=== PATIENT | female | born 1970 | race Caucasian/White ===

== ENCOUNTER 2016-12-05 17:07 | Emergency (ER) | payer OTHER ==
[2016-12-05] MEDS ORDERED: Acetaminophen 500 MG TAB ONE (17:40)
[2016-12-05] MEDS ORDERED: Ibuprofen 800 MG TAB ONE (17:40)
--- NOTE | 2016-12-05 18:06 | RAD ---
RIGHT FOREARM TWO VIEW 12/05/16 HISTORY: Trauma. COMPARISON: None. FINDINGS: No acute fracture of the forearm. Soft tissues are unremarkable. IMPRESSION: Unremarkable exam of the forearm. POS: [id number]
== END 2016-12-05 18:10 | disposition home or self-care (01) ==
LOC: MADERS 17:07
DX: S50.11XA Contusion of right forearm, initial encounter (principal); F17.210 Nicotine dependence, cigarettes, uncomplicated; Z79.899 Other long term (current) drug therapy; X58.XXXA Exposure to other specified factors, initial encounter

== ENCOUNTER 2016-12-16 10:05 | Emergency (ER) | payer OTHER ==
[2016-12-16] MEDS ORDERED: Ketorolac Tromethamine 60 MG/2 ML VIAL ONE (10:42)
== END 2016-12-16 11:13 | disposition home or self-care (01) ==
LOC: MADERS 10:05
DX: M54.41 Lumbago with sciatica, right side (principal); K74.60 Unspecified cirrhosis of liver; F17.210 Nicotine dependence, cigarettes, uncomplicated; Z86.19 Personal history of other infectious and parasitic diseases; Z79.891 Long term (current) use of opiate analgesic; Z79.899 Other long term (current) drug therapy
CPT/HCPCS: 96372; J1040; J1885

== ENCOUNTER 2018-05-22 16:57 | Emergency (ER) | payer OTHER ==
[2018-05-22] MEDS ORDERED: Loperamide HCl 2 MG CAP ONE (17:38)
[2018-05-22] MEDS ORDERED: Ondansetron HCl/PF 4 MG/2 ML Vial ONE (17:38)
[2018-05-22] MEDS ORDERED: Ketorolac Tromethamine 30 MG/ML VIAL ONE (17:38)
[2018-05-22 17:42] LABS: #Basophils 0.1 thou/uL (0.0-0.2); #Eosinphils 0.1 thou/uL (0.0-0.7); #Lymphocytes 2.6 thou/uL (1.20-3.40); #Monocytes 0.7 thou/uL (0.11-0.59); %Basophils 0.9 % (0.0-1.0); %Lymphocytes 30.9 % (21.0-51.0); %Monocytes 8.3 % (0.0-10.0); Mean Corpuscular Hemoglobin 32.9 pg (27.0-31.0); Mean Corpuscular Volume 94.2 fL (78.0-98.0); Mean Platelet Volume 7.8 fL (7.4-10.4); Platelet Count 101 thou/uL (130-400); Red Blood Cell (RBC) Count 4.55 mill/uL (4.20-5.40); White Blood Cell (WBC) Count 8.5 thou/uL (4.8-10.8)
[2018-05-22 17:44] LABS: ALT (SGPT) 24 U/L (8-55); AST (SGOT) 23 U/L (5-34); Albumin 4.6 g/dL (3.5-5.0); Alkaline Phosphatase 143 U/L (40-150); Anion Gap 15 mmol/L (10-20); BUN (Urea Nitrogen) 6 mg/dL (7.0-18.7); Bilirubin, Total 0.5 mg/dL (0.2-1.2); Calc. Creatinine Clearance 0 mL/min (70-130); Calcium 10.3 mg/dL (7.8-10.44); Carbon Dioxide 26 mmol/L (22-29); Chloride 107 mmol/L (98-107); Estimated GFR-MDRD Greater than 90; Globulin 3.5 g/dL (2.4-3.5); Glucose 92 mg/dL (70-105); Protein, Total 8.1 g/dL (6.0-8.3); Sodium 144 mmol/L (136-145)
[2018-05-22 17:47] LABS: PLT Morphology Comment Appears Decreased
[2018-05-22] MEDS ORDERED: Lidocaine Viscous Sol 2% 15 ml UD Cup ONE (18:06)
== END 2018-05-22 18:49 | disposition home or self-care (01) ==
LOC: MADERS 16:57
DX: F11.23 Opioid dependence with withdrawal (principal); J45.909 Unspecified asthma, uncomplicated; F17.210 Nicotine dependence, cigarettes, uncomplicated; K74.60 Unspecified cirrhosis of liver; Z79.899 Other long term (current) drug therapy
CPT/HCPCS: 36415; 80053; 83690; 85025; 96361; 96374; 96375; J1885; J2405

== ENCOUNTER 2018-08-10 13:39 | Emergency (ER) | payer OTHER ==
[2018-08-10] MEDS ORDERED: Acetaminophen 500 MG TAB ONE (13:57)
[2018-08-10] MEDS ORDERED: Clindamycin 150 MG CAP ONE (13:57)
== END 2018-08-10 14:12 | disposition home or self-care (01) ==
LOC: MADERS 13:39
DX: K02.9 Dental caries, unspecified (principal); F17.210 Nicotine dependence, cigarettes, uncomplicated; Z79.899 Other long term (current) drug therapy
CPT/HCPCS: 99282

== ENCOUNTER 2018-08-16 08:20 | Emergency (ER) | payer OTHER ==
[2018-08-16] MEDS ORDERED: Ketorolac Tromethamine 60 MG/2 ML VIAL ONE (08:57)
[2018-08-16] MEDS ORDERED: Sodium Chloride 0.9% 1,000 ML ONE (09:16)
[2018-08-16] MEDS ORDERED: Acetaminophen 500 MG TAB ONE (09:38)
[2018-08-16 09:40] LABS: #Basophils 0.1 thou/uL (0.0-0.2); #Lymphocytes 1.7 thou/uL (1.20-3.40); #Monocytes 0.7 thou/uL (0.11-0.59); %Basophils 0.4 % (0.0-1.0); %Eosinophils 0.2 % (0.0-10.0); %Lymphocytes 10.7 % (21.0-51.0); %Monocytes 4.4 % (0.0-10.0); %Neutrophils 84.4 % (42.0-75.0); Hemoglobin 14.8 g/dL (12.0-16.0); Mean Corpuscular HGB CONC 34.9 g/dL (32.0-36.0); Mean Corpuscular Hemoglobin 33.7 pg (27.0-31.0); Mean Corpuscular Volume 96.4 fL (78.0-98.0); Mean Platelet Volume 6.3 fL (7.4-10.4); Platelet Count 184 thou/uL (130-400); RBC Distribution Width 11.2 % (11.5-14.5); Red Blood Cell (RBC) Count 4.41 mill/uL (4.20-5.40); White Blood Cell (WBC) Count 15.4 thou/uL (4.8-10.8)
[2018-08-16 09:57] LABS: ALT (SGPT) 30 U/L (8-55); AST (SGOT) 32 U/L (5-34); Albumin 3.7 g/dL (3.5-5.0); Alkaline Phosphatase 135 U/L (40-150); Anion Gap 16 mmol/L (10-20); BUN (Urea Nitrogen) 5 mg/dL (7.0-18.7); Bilirubin, Total 0.4 mg/dL (0.2-1.2); Calc. Creatinine Clearance 0 mL/min (70-130); Calcium 9.5 mg/dL (7.8-10.44); Carbon Dioxide 26 mmol/L (22-29); Chloride 100 mmol/L (98-107); Estimated GFR-MDRD 84; Glucose 153 mg/dL (70-105); Protein, Total 7.7 g/dL (6.0-8.3); Sodium 139 mmol/L (136-145)
--- NOTE | 2018-08-16 09:59 | RAD ---
TWO VIEW CHEST: INDICATION: Cough. COMPARISON: Reference is made to 05/04/2015 exam. FINDINGS: There are interstitial opacities bilaterally. Nipple shadows overlie the lower chest bilaterally. C ardiac silhouette is normal in size. No effusion or discrete pneumothorax. IMPRESSION: Interstitial prominence of each lung. This could be on the basis of an atypical infectious process v ersus interstitial lung disease. Edema is considered less likely given normal size of cardiac silhou ette. Recommend clinical correlation. Imaging followup is also recommended to confirm resolution. CODE T
[2018-08-16] MEDS ORDERED: Potassium Chloride 20 MEQ TAB ONE (10:11)
[2018-08-16] MEDS ORDERED: Levofloxacin 500 mg/D5W 100 ml Premix Bag ONE (10:11)
[2018-08-16] MEDS ORDERED: Acyclovir 200 mg Capsule ONE (10:15)
[2018-08-16] MEDS ORDERED: Sodium Chloride 0.9% 1,000 ML BAG ONE (18:20)
== END 2018-08-16 11:18 | disposition short-term general hospital (02) ==
LOC: MADERS 08:20
DX: J18.9 Pneumonia, unspecified organism (principal); B02.9 Zoster without complications; J45.909 Unspecified asthma, uncomplicated; F17.210 Nicotine dependence, cigarettes, uncomplicated; Z79.899 Other long term (current) drug therapy
CPT/HCPCS: 71046; 80053; 83605; 85025; 87040; 94760; 96361; 96365; 96372; J1885; J1956; J7050

== ENCOUNTER 2018-10-25 12:12 | Emergency (ER) | payer OTHER | END 2018-10-25 12:35 | disposition home or self-care (01) | LOC: MADERS 12:12 | DX: K04.7 Periapical abscess without sinus (principal); K02.9 Dental caries, unspecified; J45.909 Unspecified asthma, uncomplicated; F17.210 Nicotine dependence, cigarettes, uncomplicated; Z79.51 Long term (current) use of inhaled steroids | CPT/HCPCS: 99282 ==

== ENCOUNTER 2019-06-24 10:14 | Emergency (ER) | payer OTHER | END 2019-06-24 10:45 | disposition home or self-care (01) | LOC: MADERS 10:14 | DX: K02.9 Dental caries, unspecified (principal); J45.909 Unspecified asthma, uncomplicated; F17.210 Nicotine dependence, cigarettes, uncomplicated | CPT/HCPCS: 99406 ==

== ENCOUNTER 2019-10-14 04:06 | Emergency (ER) | payer OTHER | END 2019-10-14 04:28 | disposition left against medical advice (07) | LOC: MADERS 04:06 | DX: Z53.21 Procedure and treatment not carried out due to patient leaving prior to being seen by health care provider (principal) ==

== ENCOUNTER 2020-02-13 11:32 | Emergency (ER) | payer OTHER ==
--- NOTE | 2020-02-13 12:12 | RAD ---
Exam:3 views left foot HISTORY: Foot pain on tailored to days ago. Pain. COMPARISON: None FINDINGS: Lisfranc alignment is maintained. Joint spaces are preserved. Nondisplaced fracture involvi ng the proximal aspect of the distal phalanx of the first digit. There does appear to be intra-articular extension. There is midfoot soft tissue swelling. IMPRESSION: Fracture involving the proximal aspect of the distal phalanx of the first digit.
--- NOTE | 2020-02-13 12:43 | RAD ---
LEFT ANKLE 3 VIEWS: Date: 02/13/2020] HISTORY: Injury, left ankle pain. FINDINGS/IMPRESSION: The ankle mortise is maintained. No acute fracture or dislocation is identified. POS: C
[2020-02-13] MEDS ORDERED: HYDROcodone/Acetaminophen 5/325 mg Tablet ONE (12:53)
== END 2020-02-13 13:11 | disposition home or self-care (01) ==
LOC: MADERS 11:32
DX: S92.425A Nondisplaced fracture of distal phalanx of left great toe, initial encounter for closed fracture (principal); F17.200 Nicotine dependence, unspecified, uncomplicated; M25.572 Pain in left ankle and joints of left foot; L03.116 Cellulitis of left lower limb; W23.0XXA Caught, crushed, jammed, or pinched between moving objects, initial encounter

== ENCOUNTER 2020-02-15 17:56 | Emergency (ER) | payer OTHER ==
--- NOTE | 2020-02-15 18:54 | RAD ---
EXAM: LEFT TIBIA AND FIBULA TWO VIEWS: History: Pain following injury. Difficulty ambulating. FINDINGS: Minimal focal lateral soft tissue swelling is noted at the lower leg. No fracture, dislocation, or ot her acute process. IMPRESSION: Minimal focal distal lower leg soft tissue swelling. No acute osseous process. Stable appearance from yesterday's ankle examination. POS: RRE
[2020-02-15] MEDS ORDERED: Ketorolac Tromethamine 60 MG/2 ML VIAL ONE (18:58)
== END 2020-02-15 19:35 | disposition home or self-care (01) ==
LOC: MADERS 17:56
DX: M79.662 Pain in left lower leg (principal); F17.290 Nicotine dependence, other tobacco product, uncomplicated
CPT/HCPCS: 96372; J1885

== ENCOUNTER 2020-02-18 19:04 | Emergency (ER) | payer MEDICAID, OTHER ==
[2020-02-18] MEDS ORDERED: Piperacillin/Tazobactam 3.375 GM VIAL ONE (20:19)
[2020-02-18] MEDS ORDERED: Sodium Chloride 0.9% 1,000 ML ONE (20:19)
[2020-02-18] MEDS ORDERED: Ketorolac Tromethamine 30 MG/ML VIAL ONE (20:19)
[2020-02-18] MEDS ORDERED: Sodium Chloride 0.9% 100 ML ONE (20:19)
[2020-02-18 20:22] LABS: Bilirubin Negative (Negative); Blood, Urine Trace (Negative); Clarity Clear (Clear); Glucose, Urine (Dipstick) Negative (Negative); Leukocyte Negative (Negative); Nitrite Negative (Negative); Protein, Urine (Dipstick) Negative (Neg-Trace); Urobilinogen 0.2 mg/dL (Less than 2)
[2020-02-18 20:29] LABS: ALT (SGPT) 31 U/L (8-55); AST (SGOT) 37 U/L (5-34); Albumin 4.5 g/dL (3.5-5.0); Alkaline Phosphatase 137 U/L (40-110); Anion Gap 17 mmol/L (10-20); BUN (Urea Nitrogen) 23 mg/dL (9.8-20.1); Bilirubin, Total 0.4 mg/dL (0.2-1.2); Calc. Creatinine Clearance 0 mL/min (70-130); Calcium 10.2 mg/dL (7.8-10.44); Carbon Dioxide 20 mmol/L (22-29); Chloride 107 mmol/L (98-107); Estimated GFR-MDRD 54; Globulin 3.8 g/dL (2.4-3.5); Glucose 96 mg/dL (70-105); Potassium 4.4 mmol/L (3.5-5.1); Protein, Total 8.3 g/dL (6.0-8.3); Sodium 140 mmol/L (136-145)
[2020-02-18 20:30] LABS: Bacteria/HPF None Seen HPF (None Seen); RBC/HPF 0-3 HPF (0-3); Squamous Epithelial 0-3 HPF (0-3); WBC/HPF 0-3 HPF (0-3)
[2020-02-18 20:31] LABS: #Basophils 0.1 thou/uL (0.0-0.2); #Eosinphils 0.1 thou/uL (0.0-0.7); #Monocytes 0.6 thou/uL (0.11-0.59); #Neutrophils 3.4 thou/uL (1.40-6.50); %Basophils 1.1 % (0.0-1.0); %Eosinophils 1.6 % (0.0-10.0); %Lymphocytes 31.6 % (21.0-51.0); %Neutrophils 55.7 % (42.0-75.0); Mean Corpuscular Hemoglobin 32.8 pg (27.0-31.0); Mean Corpuscular Volume 102.3 fL (78.0-98.0); Mean Platelet Volume 9.2 fL (7.4-10.4); Platelet Count 98 thou/uL (130-400); RBC Distribution Width 14.4 % (11.5-14.5); Red Blood Cell (RBC) Count 3.97 mill/uL (4.20-5.40); White Blood Cell (WBC) Count 6.2 thou/uL (4.8-10.8)
== END 2020-02-18 21:20 | disposition short-term general hospital (02) ==
LOC: MADERS 19:04
DX: L03.116 Cellulitis of left lower limb (principal); F17.200 Nicotine dependence, unspecified, uncomplicated
CPT/HCPCS: 80053; 81003; 81015; 83605; 85025; 87040; 87086; 96365; 96375; J1885; J2543; J3370; J3490; J7050; J7070

== ENCOUNTER 2020-05-13 14:03 | Emergency (ER) | payer MEDICAID, OTHER ==
[2020-05-13] MEDS ORDERED: Amoxicillin/Potassium Clav 875 MG TAB ONE (15:19)
== END 2020-05-13 15:15 | disposition home or self-care (01) ==
LOC: MADERS 14:03
DX: K02.9 Dental caries, unspecified (principal); F17.210 Nicotine dependence, cigarettes, uncomplicated
CPT/HCPCS: 64400

== ENCOUNTER 2020-08-13 12:58 | Emergency (ER) | payer OTHER ==
[2020-08-13] MEDS ORDERED: Boostrix 0.5 ML (Tdap) VIAL ONE (13:41)
== END 2020-08-13 13:53 | disposition home or self-care (01) ==
LOC: MADERS 12:58
DX: S40.872A Other superficial bite of left upper arm, initial encounter (principal); J45.909 Unspecified asthma, uncomplicated; F17.210 Nicotine dependence, cigarettes, uncomplicated; W64.XXXA Exposure to other animate mechanical forces, initial encounter
CPT/HCPCS: 90471; 90715

== ENCOUNTER 2020-08-24 11:31 | Emergency (ER) | payer OTHER | END 2020-08-24 12:03 | disposition home or self-care (01) | LOC: MADERS 11:31 | DX: M54.5 Low back pain (principal); F17.210 Nicotine dependence, cigarettes, uncomplicated; J45.909 Unspecified asthma, uncomplicated | CPT/HCPCS: 99281 ==

== ENCOUNTER 2020-09-02 11:26 | Emergency (ER) | payer OTHER | END 2020-09-02 11:58 | disposition left against medical advice (07) | LOC: MADERS 11:26 | DX: R21 Rash and other nonspecific skin eruption (principal); M54.2 Cervicalgia; R22.1 Localized swelling, mass and lump, neck; J45.909 Unspecified asthma, uncomplicated; F17.210 Nicotine dependence, cigarettes, uncomplicated | CPT/HCPCS: 99282 ==

== ENCOUNTER 2020-09-27 11:39 | Emergency (ER) | payer OTHER ==
[2020-09-27] MEDS ORDERED: predniSONE 20 MG TAB ONE (12:06)
== END 2020-09-27 12:09 | disposition home or self-care (01) ==
LOC: MADERS 11:39
DX: L30.9 Dermatitis, unspecified (principal); F17.210 Nicotine dependence, cigarettes, uncomplicated; J45.909 Unspecified asthma, uncomplicated
CPT/HCPCS: 99282; J7512

== ENCOUNTER 2020-10-09 16:48 | Emergency (ER) | payer OTHER ==
[2020-10-09] MEDS ORDERED: Ondansetron ODT 4 MG TAB ONE (18:31)
[2020-10-09] MEDS ORDERED: Ketorolac Tromethamine 30 MG/ML VIAL ONE (18:31)
[2020-10-09 18:35] LABS: #Basophils 0.1 thou/uL (0.0-0.2); #Eosinphils 0.1 thou/uL (0.0-0.7); #Lymphocytes 2.7 thou/uL (1.20-3.40); #Monocytes 0.8 thou/uL (0.11-0.59); #Neutrophils 5.8 thou/uL (1.40-6.50); %Eosinophils 1.5 % (0.0-10.0); %Lymphocytes 27.9 % (21.0-51.0); %Monocytes 8.8 % (0.0-10.0); %Neutrophils 60.7 % (42.0-75.0); Hemoglobin 16.4 g/dL (12.0-16.0); Mean Corpuscular HGB CONC 33.3 g/dL (32.0-36.0); Mean Corpuscular Hemoglobin 32.5 pg (27.0-31.0); Mean Corpuscular Volume 97.9 fL (78.0-98.0); Mean Platelet Volume 7.2 fL (7.4-10.4); Platelet Count 124 thou/uL (130-400); Red Blood Cell (RBC) Count 5.04 mill/uL (4.20-5.40); White Blood Cell (WBC) Count 9.5 thou/uL (4.8-10.8)
--- NOTE | 2020-10-09 18:38 | CT ---
CT BRAIN WITHOUT CONTRAST: HISTORY: Headache COMPARISON: 09/30/2015 FINDINGS: No evidence of acute infarct, hemorrhage, midline shift or abnormal extra-axial fluid collections is seen. The ventricular size is appropriate and the basilar cisterns are patent. The bony calvarium is intact. The visualized paranasal sinuses and mastoid air cells are well aerated. IMPRESSION: No CT evidence of acute intracranial process.
[2020-10-09 18:51] LABS: ALT (SGPT) 50 U/L (8-55); AST (SGOT) 44 U/L (5-34); Albumin 4.7 g/dL (3.5-5.0); Alkaline Phosphatase 111 U/L (40-110); Anion Gap 17 mmol/L (10-20); BUN (Urea Nitrogen) 14 mg/dL (9.8-20.1); Bilirubin, Total 0.7 mg/dL (0.2-1.2); Calc. Creatinine Clearance 0 mL/min (70-130); Calcium 10.6 mg/dL (7.8-10.44); Carbon Dioxide 26 mmol/L (22-29); Chloride 103 mmol/L (98-107); Globulin 3.7 g/dL (2.4-3.5); Glucose 99 mg/dL (70-105); Potassium 4.6 mmol/L (3.5-5.1); Protein, Total 8.4 g/dL (6.0-8.3); Sodium 141 mmol/L (136-145)
== END 2020-10-09 20:00 | disposition home or self-care (01) ==
LOC: MADERS 16:48
DX: G43.909 Migraine, unspecified, not intractable, without status migrainosus (principal); H53.149 Visual discomfort, unspecified; J45.909 Unspecified asthma, uncomplicated; F17.210 Nicotine dependence, cigarettes, uncomplicated
CPT/HCPCS: 36415; 70450; 80053; 85025; 96372; J1885; Q0162

== ENCOUNTER 2020-10-11 12:07 | Emergency (ER) | payer OTHER ==
[~2020-10-11 12:07] MED LIST: Iopamidol 370 76% 125 ML VIAL FS ONE
[2020-10-11] MEDS ORDERED: Ketorolac Tromethamine 60 MG/2 ML VIAL ONE (13:56)
[2020-10-11] MEDS ORDERED: diphenhydrAMINE 50 MG/ML VIAL ONE (13:56)
[2020-10-11] MEDS ORDERED: Metoclopramide HCl 10 MG/2 ML VIAL ONE (13:56)
[2020-10-11] MEDS ORDERED: Ketorolac Tromethamine 30 MG/ML VIAL ONE (13:57)
[2020-10-11] MEDS ORDERED: Sodium Chloride 0.9% 1,000 ML ONE (13:57)
[2020-10-11 14:07] LABS: #Basophils 0.1 thou/uL (0.0-0.2); #Eosinphils 0.1 thou/uL (0.0-0.7); #Monocytes 0.8 thou/uL (0.11-0.59); #Neutrophils 5.3 thou/uL (1.40-6.50); %Lymphocytes 24.6 % (21.0-51.0); %Monocytes 9.1 % (0.0-10.0); %Neutrophils 64.3 % (42.0-75.0); Mean Corpuscular HGB CONC 32.3 g/dL (32.0-36.0); Mean Corpuscular Hemoglobin 32.1 pg (27.0-31.0); Mean Corpuscular Volume 99.3 fL (78.0-98.0); Mean Platelet Volume 8.1 fL (7.4-10.4); Platelet Count 119 thou/uL (130-400); RBC Distribution Width 13.1 % (11.5-14.5); Red Blood Cell (RBC) Count 4.91 mill/uL (4.20-5.40); White Blood Cell (WBC) Count 8.3 thou/uL (4.8-10.8)
[2020-10-11 14:13] LABS: ALT (SGPT) 40 U/L (8-55); AST (SGOT) 31 U/L (5-34); Albumin 4.6 g/dL (3.5-5.0); Alkaline Phosphatase 112 U/L (40-110); Anion Gap 15 mmol/L (10-20); BUN (Urea Nitrogen) 17 mg/dL (9.8-20.1); Bilirubin, Total 0.7 mg/dL (0.2-1.2); Calc. Creatinine Clearance 0 mL/min (70-130); Calcium 10.2 mg/dL (7.8-10.44); Carbon Dioxide 27 mmol/L (22-29); Chloride 104 mmol/L (98-107); Globulin 3.5 g/dL (2.4-3.5); Glucose 91 mg/dL (70-105); Potassium 3.9 mmol/L (3.5-5.1); Protein, Total 8.1 g/dL (6.0-8.3); Sodium 142 mmol/L (136-145)
[2020-10-11 14:19] LABS: Anisocytosis SLIGHT = 6-15 cells (100X) (0-5/hpf); Platelet Morphology Comment Appears Decreased
[2020-10-11] MEDS ORDERED: Meclizine HCl 25 MG TAB ONE (16:32)
[2020-10-11] MEDS ORDERED: Magnesium 2 GM/50 ML BAG (IN WATER) ONE (16:32)
== END 2020-10-11 18:40 | disposition home or self-care (01) ==
LOC: MADERS 12:07
DX: R51.9 Headache, unspecified (principal); R42 Dizziness and giddiness; J45.909 Unspecified asthma, uncomplicated; F17.210 Nicotine dependence, cigarettes, uncomplicated
CPT/HCPCS: 70496; 70498; 80053; 85025; 93005; 96365; 96367; 96375; J1200; J1885; J2765; J3475; J7050; Q9967

== ENCOUNTER 2020-12-10 13:45 | Outpatient (CLI) | payer OTHER | END 2020-12-10 13:46 | disposition home or self-care (01) | LOC: MADLAB 13:45 | PROVIDERS: ATTEND Family Medicine | DX: R82.998 Other abnormal findings in urine (principal) | CPT/HCPCS: 87086 ==

== ENCOUNTER 2021-07-23 11:18 | Emergency (ER) | payer OTHER ==
[2021-07-23] MEDS ORDERED: Ketorolac Tromethamine 60 MG/2 ML VIAL ONE (12:45)
== END 2021-07-23 13:18 | disposition home or self-care (01) ==
LOC: MADERS 11:18
DX: M54.2 Cervicalgia (principal); M54.6 Pain in thoracic spine; M54.50 Low back pain, unspecified; J45.909 Unspecified asthma, uncomplicated; F17.210 Nicotine dependence, cigarettes, uncomplicated; W01.0XXA Fall on same level from slipping, tripping and stumbling without subsequent striking against object, initial encounter
CPT/HCPCS: 72125; 72128; 72131; 96372; J1885

== ENCOUNTER 2021-08-02 13:39 | Emergency (ER) | payer OTHER | END 2021-08-02 15:04 | disposition home or self-care (01) | LOC: MADERS 13:39 | DX: K04.7 Periapical abscess without sinus (principal); Z71.6 Tobacco abuse counseling; K02.9 Dental caries, unspecified; K03.81 Cracked tooth; J45.909 Unspecified asthma, uncomplicated; F17.210 Nicotine dependence, cigarettes, uncomplicated | CPT/HCPCS: 99283 ==

== ENCOUNTER 2021-08-07 15:31 | Emergency (ER) | payer OTHER ==
[2021-08-07 16:14] LABS: #Basophils 0.1 thou/uL (0.0-0.2); #Eosinphils 0.1 thou/uL (0.0-0.7); #Lymphocytes 2.7 thou/uL (1.20-3.40); #Monocytes 1.1 thou/uL (0.11-0.59); #Neutrophils 4.9 thou/uL (1.40-6.50); %Basophils 1.1 % (0.0-1.0); %Eosinophils 0.8 % (0.0-10.0); %Lymphocytes 30.7 % (21.0-51.0); %Monocytes 11.9 % (0.0-10.0); %Neutrophils 55.5 % (42.0-75.0); Hemoglobin 16.3 g/dL (12.0-16.0); Mean Corpuscular HGB CONC 32.6 g/dL (32.0-36.0); Mean Corpuscular Hemoglobin 32.2 pg (27.0-31.0); Mean Corpuscular Volume 98.6 fL (78.0-98.0); Mean Platelet Volume 7.4 fL (7.4-10.4); Platelet Count 128 thou/uL (130-400); RBC Distribution Width 12.5 % (11.5-14.5); Red Blood Cell (RBC) Count 5.07 mill/uL (4.20-5.40); White Blood Cell (WBC) Count 8.8 thou/uL (4.8-10.8)
[2021-08-07] MEDS ORDERED: Ondansetron PF 4 MG/2 ML Vial ONE (16:14)
[2021-08-07 16:29] LABS: ALT (SGPT) 29 U/L (8-55); AST (SGOT) 25 U/L (5-34); Albumin 4.4 g/dL (3.5-5.0); Alkaline Phosphatase 103 U/L (40-110); Anion Gap 16 mmol/L (10-20); BUN (Urea Nitrogen) 8 mg/dL (9.8-20.1); Calc. Creatinine Clearance 0 mL/min (70-130); Calcium 9.7 mg/dL (7.8-10.44); Carbon Dioxide 23 mmol/L (22-29); Chloride 104 mmol/L (98-107); Glucose 94 mg/dL (70-105); Lipase 26 U/L (8-78); Potassium 3.8 mmol/L (3.5-5.1); Protein, Total 7.4 g/dL (6.0-8.3); Sodium 139 mmol/L (136-145)
[2021-08-07] MEDS ORDERED: Lidocaine Viscous Sol 2% 15 ml UD Cup ONE (16:30)
[2021-08-07] MEDS ORDERED: Mag-Al Plus 1200 MG/1200 MG/120 MG/30 ML UDCUP ONE (16:30)
[2021-08-07 17:19] LABS: Bilirubin Negative (Negative); Blood, Urine Small (Negative); Clarity Clear (Clear); Glucose, Urine (Dipstick) Negative (Negative); Ketone, Urine 15 mg/dL (Negative); Leukocyte Negative (Negative); Nitrite Negative (Negative); Protein, Urine (Dipstick) Negative (Neg-Trace); Urobilinogen 0.2 mg/dL (Less than 2)
[2021-08-07 17:22] LABS: Specific Gravity, Urine 1.005 (1.002-1.036)
[2021-08-07 17:29] LABS: Bacteria/HPF Rare-Few HPF (None Seen); Squamous Epithelial 0-3 HPF (0-3); WBC/HPF 0-3 HPF (0-3)
== END 2021-08-07 18:00 | disposition home or self-care (01) ==
LOC: MADERS 15:31
DX: R11.2 Nausea with vomiting, unspecified (principal); R19.7 Diarrhea, unspecified; J45.909 Unspecified asthma, uncomplicated; F17.210 Nicotine dependence, cigarettes, uncomplicated
CPT/HCPCS: 36415; 80053; 81003; 81015; 83690; 85025; 93005; 96374; J2405

== ENCOUNTER 2021-08-31 12:12 | Outpatient (CLI) | payer OTHER ==
[2021-08-31 12:40] LABS: Bilirubin Negative (Negative); Blood, Urine Small (Negative); Clarity Clear (Clear); Glucose, Urine (Dipstick) Negative (Negative); Ketone, Urine Negative (Negative); Leukocyte Negative (Negative); Nitrite Negative (Negative); Protein, Urine (Dipstick) Negative (Neg-Trace); Specific Gravity, Urine 1.015 (1.005-1.030); Urobilinogen 0.2 mg/dL (Less than 2)
[2021-08-31 12:44] LABS: #Basophils 0.1 thou/uL (0.0-0.2); #Lymphocytes 2.4 thou/uL (1.20-3.40); #Monocytes 0.7 thou/uL (0.11-0.59); #Neutrophils 5.1 thou/uL (1.40-6.50); %Basophils 0.9 % (0.0-1.0); %Eosinophils 0.6 % (0.0-10.0); %Lymphocytes 28.8 % (21.0-51.0); %Monocytes 7.9 % (0.0-10.0); %Neutrophils 61.8 % (42.0-75.0); Hemoglobin 16.9 g/dL (12.0-16.0); Mean Corpuscular HGB CONC 33.4 g/dL (32.0-36.0); Mean Corpuscular Hemoglobin 32.7 pg (27.0-31.0); Mean Corpuscular Volume 97.7 fL (78.0-98.0); Mean Platelet Volume 8.6 fL (7.4-10.4); Platelet Count 146 thou/uL (130-400); RBC Distribution Width 12.2 % (11.5-14.5); Red Blood Cell (RBC) Count 5.19 mill/uL (4.20-5.40); White Blood Cell (WBC) Count 8.2 thou/uL (4.8-10.8)
[2021-08-31 12:56] LABS: Bacteria/HPF Rare-Few HPF (None Seen); RBC/HPF 0-3 HPF (0-3); Squamous Epithelial 0-3 HPF (0-3); WBC/HPF 0-3 HPF (0-3)
[2021-08-31 12:57] LABS: Amphetamine Not Detected (NotDetected); Barbiturates Screen Not Detected (NotDetected); Benzodiazepine Screen Not Detected (NotDetected); Cocaine Metabolite Screen Not Detected (NotDetected); Medtox Control Line Valid? VALID (VALID); Methadone Not Detected (NotDetected); Methamphetamine Not Detected (NotDetected); Opiate Screen Detected (NotDetected); Oxycodone Screen Not Detected (NotDetected); Phencyclidine (PCP) Not Detected (NotDetected); THC/Cannabinoid Screen Not Detected (NotDetected); Tricyclic Screen Not Detected (NotDetected)
[2021-08-31 12:59] LABS: Albumin 4.6 g/dL (3.5-5.0); Anion Gap 17 mmol/L (10-20); BUN (Urea Nitrogen) 13 mg/dL (9.8-20.1); Bilirubin, Total 0.4 mg/dL (0.2-1.2); Calc. Creatinine Clearance 0 mL/min (70-130); Calcium 10.6 mg/dL (7.8-10.44); Carbon Dioxide 25 mmol/L (22-29); Chloride 102 mmol/L (98-107); Globulin 3.7 g/dL (2.4-3.5); Glucose 100 mg/dL (70-105); Potassium 3.9 mmol/L (3.5-5.1); Protein, Total 8.3 g/dL (6.0-8.3); Sodium 140 mmol/L (136-145)
[2021-08-31 13:00] LABS: ALT (SGPT) 23 U/L (8-55); AST (SGOT) 26 U/L (5-34); Alkaline Phosphatase 111 U/L (40-110)
== END 2021-08-31 12:13 | disposition home or self-care (01) ==
LOC: MADLAB 12:12 → MADRAD 12:13
PROVIDERS: ATTEND Family Medicine
DX: R10.13 Epigastric pain (principal); R42 Dizziness and giddiness; R53.83 Other fatigue; R41.0 Disorientation, unspecified
CPT/HCPCS: 36415; 74018; 80053; 80306; 81001; 84443; 85025

== ENCOUNTER 2021-10-10 13:37 | Emergency (ER) | payer OTHER ==
[2021-10-10] MEDS ORDERED: diphenhydrAMINE 50 MG/ML VIAL ONE (14:24)
[2021-10-10] MEDS ORDERED: Ketorolac Tromethamine 30 MG/ML VIAL ONE (14:24)
[2021-10-10] MEDS ORDERED: Sodium Chloride 0.9% 1,000 ML ONE (14:24)
[2021-10-10] MEDS ORDERED: Metoclopramide HCl 10 MG/2 ML VIAL ONE (14:24)
[2021-10-10 14:43] LABS: Prothrombin Time 13.7 sec (12.0-14.7)
[2021-10-10 14:45] LABS: #Basophils 0.1 thou/uL (0.0-0.2); #Lymphocytes 1.6 thou/uL (1.20-3.40); #Monocytes 0.7 thou/uL (0.11-0.59); %Basophils 1.1 % (0.0-1.0); %Eosinophils 0.5 % (0.0-10.0); %Lymphocytes 30.1 % (21.0-51.0); %Monocytes 12.4 % (0.0-10.0); %Neutrophils 55.9 % (42.0-75.0); Hemoglobin 15.8 g/dL (12.0-16.0); Mean Corpuscular HGB CONC 33.6 g/dL (32.0-36.0); Mean Corpuscular Hemoglobin 32.2 pg (27.0-31.0); Mean Corpuscular Volume 95.8 fL (78.0-98.0); Platelet Count 90 thou/uL (130-400); Platelet Morphology Comment Appears Decreased; RBC Distribution Width 10.9 % (11.5-14.5); Red Blood Cell (RBC) Count 4.89 mill/uL (4.20-5.40); White Blood Cell (WBC) Count 5.3 thou/uL (4.8-10.8)
[2021-10-10 14:48] LABS: Manual Diff?? NO
[2021-10-10 14:49] LABS: MDiff Complete? YES
[2021-10-10 14:53] LABS: ALT (SGPT) 40 U/L (8-55); AST (SGOT) 30 U/L (5-34); Albumin 4.5 g/dL (3.5-5.0); Alkaline Phosphatase 102 U/L (40-110); Anion Gap 13 mmol/L (10-20); BUN (Urea Nitrogen) 11 mg/dL (9.8-20.1); Bilirubin, Total 0.6 mg/dL (0.2-1.2); Calc. Creatinine Clearance 0 mL/min (70-130); Calcium 11.1 mg/dL (7.8-10.44); Carbon Dioxide 26 mmol/L (22-29); Chloride 104 mmol/L (98-107); Globulin 3.8 g/dL (2.4-3.5); Glucose 144 mg/dL (70-105); Potassium 3.8 mmol/L (3.5-5.1); Protein, Total 8.3 g/dL (6.0-8.3); Sodium 139 mmol/L (136-145)
== END 2021-10-10 16:12 | disposition home or self-care (01) ==
LOC: MADERS 13:37
DX: G43.909 Migraine, unspecified, not intractable, without status migrainosus (principal); F17.210 Nicotine dependence, cigarettes, uncomplicated
CPT/HCPCS: 36415; 70450; 80053; 85025; 85610; 96374; 96375; J1200; J1885; J2765; J7050

== ENCOUNTER 2022-05-30 10:54 | Outpatient (CLI) | payer OTHER ==
[2022-05-30 11:15] LABS: #Basophils 0.1 thou/uL (0.0-0.2); #Eosinphils 0.1 thou/uL (0.0-0.7); #Lymphocytes 1.7 thou/uL (1.20-3.40); #Monocytes 0.7 thou/uL (0.11-0.59); #Neutrophils 6.6 thou/uL (1.40-6.50); %Basophils 0.8 % (0.0-1.0); %Eosinophils 1.1 % (0.0-10.0); %Lymphocytes 18.6 % (21.0-51.0); %Monocytes 7.5 % (0.0-10.0); %Neutrophils 71.9 % (42.0-75.0); Hemoglobin 14.2 g/dL (12.0-16.0); Mean Corpuscular Hemoglobin 30.9 pg (27.0-31.0); Mean Corpuscular Volume 93.6 fL (78.0-98.0); Mean Platelet Volume 9.8 fL (7.4-10.4); Platelet Count 170 thou/uL (130-400); RBC Distribution Width 11.2 % (11.5-14.5); Red Blood Cell (RBC) Count 4.58 mill/uL (4.20-5.40); White Blood Cell (WBC) Count 9.2 thou/uL (4.8-10.8)
[2022-05-30 11:17] LABS: ALT (SGPT) 24 U/L (8-55); AST (SGOT) 23 U/L (5-34); Albumin 4.3 g/dL (3.5-5.0); Alkaline Phosphatase 104 U/L (40-110); Anion Gap 15 mmol/L (10-20); BUN (Urea Nitrogen) 5 mg/dL (9.8-20.1); Bilirubin, Total 0.4 mg/dL (0.2-1.2); Calc. Creatinine Clearance 0 mL/min (70-130); Calcium 11.5 mg/dL (7.8-10.44); Carbon Dioxide 29 mmol/L (22-29); Chloride 102 mmol/L (98-107); Estimated GFR 90; Globulin 4.4 g/dL (2.4-3.5); Glucose 83 mg/dL (70-105); Potassium 4.9 mmol/L (3.5-5.1); Protein, Total 8.7 g/dL (6.0-8.3); Sodium 141 mmol/L (136-145)
[2022-05-30 16:22] LABS: Hemoglobin A1c 5.2 % (4.0-6.0)
[2022-05-30 16:30] LABS: Albumin (w/Testosterone Panel) 4.3 g/dL
[2022-05-30 16:52] LABS: Sex Hormone Binding Globulin 62.8 nmol/L (26-188); Testosterone, Free 2.5 pg/mL (50-110); Testosterone, Total 21.2 ng/dL (12-36)
== END 2022-05-30 10:55 | disposition home or self-care (01) ==
LOC: MADLABBHPM 10:54
PROVIDERS: ATTEND Family Medicine
DX: E65 Localized adiposity (principal); R53.83 Other fatigue; Z78.0 Asymptomatic menopausal state
CPT/HCPCS: 80053; 82670; 83036; 84270; 84403; 84443; 85025

== ENCOUNTER 2023-07-11 17:23 | Emergency (ER) | payer OTHER ==
[2023-07-11 17:45] LABS: Bilirubin Negative (Negative); Blood, Urine Negative (Negative); Clarity Clear (Clear); Glucose, Urine (Dipstick) Negative (Negative); Ketone, Urine Trace mg/dL (Negative); Leukocyte Small (Negative); Nitrite Negative (Negative); Protein, Urine (Dipstick) Negative (Neg-Trace); Specific Gravity, Urine 1.025 (1.005-1.030); pH, Urine 6.5 (5.0-9.0)
[2023-07-11 17:54] LABS: Bacteria/HPF Rare-Few HPF (None Seen); CAUTI Indications for Culture Pelvic or flank pain; Squamous Epithelial 0-3 HPF (0-3); WBC/HPF 0-3 HPF (0-3)
[2023-07-11 17:55] LABS: Mucous/LPF Few LPF (<2+); Urine Culture Reflex No No
[2023-07-11 18:14] LABS: #Basophils 0.1 thou/uL (0.0-0.2); #Eosinphils 0.1 thou/uL (0.0-0.7); #Lymphocytes 2.3 thou/uL (1.20-3.40); #Neutrophils 4.2 thou/uL (1.40-6.50); %Basophils 1.2 % (0.0-1.0); %Eosinophils 1.4 % (0.0-10.0); %Lymphocytes 30.2 % (21.0-51.0); %Monocytes 12.8 % (0.0-10.0); %Neutrophils 54.4 % (42.0-75.0); Hematocrit 41.7 % (36.0-47.0); Mean Corpuscular HGB CONC 33.5 g/dL (32.0-36.0); Mean Corpuscular Volume 98.4 fl (78.0-98.0); Mean Platelet Volume 8.7 fL (7.4-10.4); Platelet Count 126 10x3/uL (130-400); RBC Distribution Width 12.7 % (11.5-14.5); Red Blood Cell (RBC) Count 4.24 mill/uL (4.20-5.40); White Blood Cell (WBC) Count 7.7 10x3/uL (4.8-10.8)
[2023-07-11] MEDS ORDERED: Lidocaine Viscous Sol 2% 15 ml UD Cup ONE (18:28)
[2023-07-11] MEDS ORDERED: Mag-Al Plus 1200 MG/1200 MG/120 MG/30 ML UDCUP ONE (18:28)
[2023-07-11] MEDS ORDERED: Dicyclomine 20 MG/2 ML VIAL ONE (18:28)
[2023-07-11 18:32] LABS: ALT (SGPT) 39 U/L (8-55); AST (SGOT) 30 U/L (5-34); Albumin 4.1 g/dL (3.5-5.0); Alkaline Phosphatase 78 U/L (40-110); Anion Gap 14 mmol/L (10-20); BUN (Urea Nitrogen) 15 mg/dL (9.8-20.1); Bilirubin, Total 0.5 mg/dL (0.2-1.2); Calc. Creatinine Clearance 0 mL/min (70-130); Calcium 10.1 mg/dL (7.8-10.44); Carbon Dioxide 23 mmol/L (22-29); Chloride 105 mmol/L (98-107); Estimated GFR 92; Globulin 3.3 g/dL (2.4-3.5); Glucose 87 mg/dL (70-105); Lipase 26 U/L (8-78); Protein, Total 7.4 g/dL (6.0-8.3); Sodium 138 mmol/L (136-145)
== END 2023-07-11 20:09 | disposition home or self-care (01) ==
LOC: MADERS 17:23
DX: R10.13 Epigastric pain (principal); F17.210 Nicotine dependence, cigarettes, uncomplicated
CPT/HCPCS: 80053; 81001; 83690; 85025; 96372

== ENCOUNTER 2023-08-03 09:46 | Emergency (ER) | payer OTHER | END 2023-08-03 10:40 | disposition home or self-care (01) | LOC: MADERS 09:46 | DX: B02.9 Zoster without complications (principal); Z87.891 Personal history of nicotine dependence | CPT/HCPCS: 99282 ==

== ENCOUNTER 2024-11-04 09:58 | Emergency (ER) | payer OTHER ==
[~2024-11-04 09:58] MED LIST changes: +Iopamidol 370 76% 100 ML VIAL ONE; -Iopamidol 370 76% 125 ML VIAL FS ONE
[2024-11-04] MEDS ORDERED: Morphine 4 MG/ML VIAL ONE ×2 (10:27→11:57)
[2024-11-04] MEDS ORDERED: Ondansetron PF 4 MG/2 ML Vial ONE (10:27)
[2024-11-04 10:43] LABS: Bilirubin Negative (Negative); Blood, Urine Negative (Negative); Clarity Clear (Clear); Glucose, Urine (Dipstick) Negative (Negative); Ketone, Urine Negative (Negative); Leukocyte Trace (Negative); Nitrite Negative (Negative); Protein, Urine (Dipstick) Negative (Neg-Trace); RBC/HPF 0-3 HPF (0-3); Urobilinogen 0.2 mg/dL (Less than 2)
[2024-11-04 10:44] LABS: Bacteria/HPF Rare-Few HPF (None Seen); CAUTI Indications for Culture Pelvic or flank pain; Squamous Epithelial 0-3 HPF (0-3); Urine Culture Reflex No No; WBC/HPF 0-3 HPF (0-3)
[2024-11-04] MEDS ORDERED: Morphine 2 MG/ML VIAL ONE (10:49)
[2024-11-04 11:21] LABS: #Basophils 0.1 thou/uL (0.0-0.2); #Eosinophils 0.1 thou/uL (0.0-0.7); #Lymphocytes 1.3 thou/uL (1.20-3.40); #Monocytes 0.6 thou/uL (0.11-0.59); #Neutrophils 4.7 thou/uL (1.40-6.50); %Eosinophils 0.9 % (0.0-10.0); %Lymphocytes 19.2 % (21.0-51.0); %Monocytes 8.3 % (0.0-10.0); %Neutrophils 70.5 % (42.0-75.0); Hemoglobin 14.6 g/dL (12.0-16.0); Mean Corpuscular HGB CONC 32.5 g/dL (32.0-36.0); Mean Corpuscular Hemoglobin 31.7 pg (27.0-31.0); Mean Corpuscular Volume 97.5 fl (78.0-98.0); Platelet Count 160 10x3/uL (130-400); RBC Distribution Width 12.6 % (11.5-14.5); Red Blood Cell (RBC) Count 4.61 mill/uL (4.20-5.40); White Blood Cell (WBC) Count 6.7 10x3/uL (4.8-10.8)
[2024-11-04 11:23] LABS: INR-International Normal Ratio 1.1; Prothrombin Time 13.7 sec (12.0-14.7)
[2024-11-04 11:24] LABS: PTT 30.2 sec (22.9-36.1)
[2024-11-04 11:31] LABS: ALT (SGPT) 30 U/L (Less than 34); AST (SGOT) 37 U/L (11-34); Albumin 4.4 g/dL (3.1-4.5); Alkaline Phosphatase 89 U/L (40-110); Anion Gap 12 mmol/L (10-20); BUN (Urea Nitrogen) 7 mg/dL (9.8-20.1); Bilirubin, Total 0.5 mg/dL (0.3-1.2); Calc. Creatinine Clearance 0 mL/min (70-130); Carbon Dioxide 26 mmol/L (22-29); Chloride 105 mmol/L (98-107); Estimated GFR 103; Globulin 4.1 g/dL (2.4-3.5); Glucose 91 mg/dL (70-105); Lipase 18 U/L (8-78); Potassium 4.5 mmol/L (3.5-5.1); Protein, Total 8.5 g/dL (6.0-8.3); Sodium 138 mmol/L (136-145)
[2024-11-04] MEDS ORDERED: Lactated Ringer's 1,000 ML ONE (11:57)
== END 2024-11-04 13:47 | disposition home or self-care (01) ==
LOC: MADERS 09:58
DX: R10.11 Right upper quadrant pain (principal); G89.18 Other acute postprocedural pain; E83.52 Hypercalcemia; Z87.891 Personal history of nicotine dependence; Z79.899 Other long term (current) drug therapy
CPT/HCPCS: 36415; 74177; 80053; 81001; 83605; 83690; 85025; 85610; 85730; 87040; 94760; 96361; 96374; 96375; 96376; J2270; J2272; J2405; J7120; Q9967